=== PATIENT | female | born 1965 | race Caucasian/White ===

== ENCOUNTER 2017-06-29 04:28 | Emergency (ER) | payer SELFPAY ==
[~2017-06-29] VITALS: Ht 162.6 cm; Wt 80.0 kg
[2017-06-29 04:34] VITALS: Ht 162.6 cm; Wt 80.0 kg
[2017-06-29] MEDS ORDERED: ONDANSETRON 4 MG INJ IV STA (04:40)
[2017-06-29] MEDS ORDERED: HYDROmorphONE 1 MG/ML SYG IV STA (04:40)
[2017-06-29] MEDS ORDERED: SILVER SULFADIAZINE 1% 50 GM CR TOP ONE (05:00)
[2017-06-29] MEDS ORDERED: SILVER SULFADIAZINE 1% 25 GM CR TOP ONE (05:00)
[2017-06-29] MEDS ORDERED: SLSL1C50 TOP (05:07)
[2017-06-29] MEDS ORDERED: HYDR-902 PO (05:07)
[2017-06-29] MEDS ORDERED: IBUP800T25 PO (05:07)
[2017-06-29] MEDS ORDERED: CEPH-443 PO (05:07)
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
[2017-06-29 05:56] VITALS: BP 110/84; PULSE 89; RESP 21; TEMP 98
== END 2017-06-29 06:05 | disposition home or self-care (01) ==
LOC: E/R 04:28
DX: T22.212A Burn of second degree of left forearm, initial encounter (principal); T22.211A Burn of second degree of right forearm, initial encounter; X19.XXXA Contact with other heat and hot substances, initial encounter; Y92.9 Unspecified place or not applicable
CPT/HCPCS: 16020; 96374; 96375; 99284; J1170; J2405